=== PATIENT | male | born 1945 | race Caucasian/White ===

== ENCOUNTER 2022-09-16 06:11 | Inpatient (IN) ==
--- NOTE | 2022-08-25 10:29 | PAT Medication Instructions ---
Medication Instructions Date of Service August 25, 2022 Home Medications atorvastatin 20 mg tablet 20 mg PO HS fiber 1 tab PO QAM meloxicam 15 mg tablet 15 mg PO QAM pregabalin 150 mg capsule 150 mg PO HS pregabalin 75 mg capsule 75 mg PO QAM ASK your surgeon for instructions meloxicam 15 mg tablet 15 mg PO QAM DO NOT take the morning of surgery fiber 1 tab PO QAM Take morning of surgery With a small sip of water, OTHERWISE NOTHING TO EAT OR DRINK AFTER MIDNIGHT: pregabalin 75 mg capsule 75 mg PO QAM Take evening before surgery atorvastatin 20 mg tablet 20 mg PO HS pregabalin 150 mg capsule 150 mg PO HS Other Notes If you have any questions please call us at [phone] or [phone] or [phone] or [phone]
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
[~2022-09-16 06:11] MED LIST: ACETAMINOPHEN 500 MG TAB PO SCH; CeleBREX 200 MG CAP PO SCH; GABAPENTIN 300 MG CAP PO SCH; LACTATED RINGER'S 1,000 ML IV SCH; ceFAZolin 2000MG 2,000 MG/15 ML SYR IV SCH
[2022-09-16] MEDS ORDERED: ROCURONIUM BROMIDE 10 MG/ML 5 ML VIAL IV ONE ×2 (07:01→09:55)
[2022-09-16] MEDS ORDERED: ONDANSETRON INJ 2 MG/ML 2 ML VIAL ONE (07:01)
[2022-09-16] MEDS ORDERED: DEXAMETHASONE SOD INJ 4 MG/ML VIAL ONE (07:01)
[2022-09-16] MEDS ORDERED: LIDOCAINE 2% 2 ML VIAL/AMP(20MG/ML) INFIL ONE (07:01)
[2022-09-16] MEDS ORDERED: PROPOFOL IV EMULSION 10 MG/ML 20 ML VIAL IV ONE (07:01)
[2022-09-16] MEDS ORDERED: fentaNYL citrate PF 100 MCG/2 ML VIAL ONE ×2 (07:02)
[2022-09-16] MEDS ORDERED: MIDAZOLAM HCL 1 MG/ML 2ML VIAL ONE (07:02)
[2022-09-16] MEDS ORDERED: SUGAMMADEX SODIUM 200 MG/2 ML VIAL IV ONE (07:03)
[2022-09-16] MEDS ORDERED: ePHEDrine sulfate 50 MG/ML AMP IV PRN (07:04)
[2022-09-16] MEDS ORDERED: ONDANSETRON INJ 2 MG/ML 2 ML VIAL IV PRN ×2 (07:04→12:39)
[2022-09-16] MEDS ORDERED: fentaNYL citrate PF 100 MCG/2 ML VIAL IV PRN (07:04)
[2022-09-16] MEDS ORDERED: ATROPINE SULFATE 0.1 MG/ML 10ML SYR IV PRN (07:04)
[2022-09-16] MEDS ORDERED: BUPIVACAINE/EPINEPHRINE 0.25% 1:200,000 30 ML VIAL ONE (07:06)
[2022-09-16] MEDS ORDERED: ceFAZolin 330 MG/ML 1 GM VIAL ONE (07:06)
--- NOTE | 2022-09-16 07:32 | History & Physical Bridge Note ---
Date of Service September 16, 2022 History & Physical Bridge Note I have examined the patient, reviewed the History & Physical and in the interval since the performance of the History & Physical I have noted the following changes of clinical significance: no changes noted
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
[2022-09-16] MEDS ORDERED: FLOSEAL HEMOSTATIC MATRIX 10ML TOP ONE (08:58)
--- NOTE | 2022-09-16 11:04 | Operative Report ---
Post Operative Report Pre & Post Diagnosis Operation Date: 09/16/22 07:45 Pre-Op Diagnosis: Neurogenic claudication due to lumbar spinal stenosis Post-Op Diagnosis: Neurogenic claudication due to lumbar spinal stenosis I identified the patient and participated in the time-out.: Yes Procedure Operation Date: 09/16/22 07:45 Actual Procedures 1. Revision lumbar decompression with bilateral medial facetectomies and foraminotomies L2-L3, L3-L4, L4-L5 and L5-S1. #2 posterior spinal fusion L2-S1. #3 placement posterior segmental instrumentation L2-S1. #4 interbody fusion L3-L4, L4-L5 and L5-S1. #5 placement of Spira 12 x 26 mm cage at L3-L4, 10 x 26 mm cage at L4-L5. And 14 x 26 mm at L4-5 S1. #6 placement locally harvested morselized autograft in the posterior gutters. #7 placement of I factor commended the test and interbody space and posterior gutters. Surgeon Jf Gonzalez, DO Seam Stay Stitcher Preston Hammer Estimated Blood Loss 550 Findings Consistent with Post-Op Diagnosis Specimens none Indications This is 77-year-old male who presents above-mentioned diagnosis and failing since course of nonoperative care is here for surgical intervention. Description of Procedure Patient was met with identified informed consent obtained. Patient was then taken to the operative suite underwent a patient placed in a prone position on the [place] table top Bright frame. All bony prominences well-padded eyes inspected to ensure no external pressure placed upon the. This point lumbar spine was prepped and draped in a sterile fashion. Sharp dissection with assistance of Bovie cautery to form down to and exposing the remaining lamina transverse processes of L2 L3-L4-L5 and the sacral ala bilaterally. From a caudal cephalad fashion revision complete laminectomy L5 L4 L3 and L2 was performed including bilateral medial facetectomies and foraminotomies addressing severe lateral recess and foraminal stenosis. Pedicle screws were then placed L2 L3-L4-L5 and S1 levels bilaterally with assistance of fluoroscopy the properly sized clemencia placed. By way of a trans foraminal approach on the left pleat discectomy of L5-S1 was performed endplates curetted to subcortically bone and a 14 x 26 mm Spira cage with I factor tapped in position. Then proceeded to L4-L5 again by way of transforaminal approach on the left pleat discectomy performed endplates guided to subcortically bone and a 10 x 26 mm Spira cage with I factor tapped in position. Lastly L3-L4 was approached by way of a transforaminal approach and left knee discectomy performed endplates curetted to subcortical bleeding bone and the 12 x 26 mm Spira cage with I factor tapped in position. The rods were then locked in final position bilaterally. The transverse processes of L2 L3-L4-L5 and sacral ala burred to subcortically bone. I factor combined with the test and locally harvested morselized autograft was placed in the posterior gutters. 15 round GIL drain inserted. The incision was then closed with 1 Vicryl to fascia 2-0 Vicryl subcutaneously and 4 Monocryl for final skin closure. Steri-Strip sterile dressing placed. Patient awakened taken to PACU in stable condition. Please note spinal cord monitoring was utilized at the procedure no changes noted. Lastly Preston Hammer was present at the entire surgery and while the patient positioning complex portions of the surgery and final skin closure. I attest to the content of the Intraoperative Record and any orders documented therein. Any exceptions are noted below.
--- NOTE | 2022-09-16 11:08 | Fluoroscopy Report ---
FL lumbar spine 2-3V CLINICAL HISTORY: L2-S1 DFI TECHNIQUE: 3 views were obtained with the C-arm in the OR with the above procedure. Total fluoroscopy time was 37.1 seconds. Radiation dose was 18.06 mGy. Comparison: None available at the time of this dictation. FINDINGS/IMPRESSION: Intraoperative images were obtained of L2-S1 decompression and fusion. Please correlate with intraoperative fluoroscopy and operative report. ACT 112: Negative or not required by law. Electronically signed by: Bruno Silverio M.D. 09/16/2022 11:07 AM
[2022-09-16] MEDS ORDERED: PROMETHAZINE HCL 12.5 MG in SODIUM CHLORIDE 0.9% 50 ML IV PRN (12:39)
[2022-09-16] MEDS ORDERED: HYDROmorphone INJ 1 MG/ML SYRINGE IV PRN (12:39)
[2022-09-16] MEDS ORDERED: ALUMINUM/MAGNESIUM SUSP 30 ML UDC PO PRN (12:39)
[2022-09-16] MEDS ORDERED: FAMOTIDINE 20 MG TAB PO PRN (12:39)
[2022-09-16] MEDS ORDERED: ONDANSETRON 4 MG OD TAB PO PRN (12:39)
[2022-09-16] MEDS ORDERED: LORazepam 0.5 MG TAB PO PRN (12:39)
[2022-09-16] MEDS ORDERED: DO NOT ADMINISTER PNEUMOCOCCAL VACCINE PRN (12:39)
[2022-09-16] MEDS ORDERED: ACETAMINOPHEN 500 MG TAB PO PRN (12:39)
[2022-09-16] MEDS ORDERED: bisacodyL 10 MG SUPP PR PRN (12:39)
[2022-09-16] MEDS ORDERED: diphenhydrAMINE Capsule 25 MG CAP PO PRN (12:39)
[2022-09-16] MEDS ORDERED: LORazepam 2 MG/1 ML VIAL IV PRN (12:39)
[2022-09-16] MEDS ORDERED: traMADol HCL 50 MG TABLET PO PRN (12:39)
[2022-09-16] MEDS ORDERED: DO NOT ADMINISTER FLU VACCINE PRN (12:39)
[2022-09-16] MEDS ORDERED: ACETAMINOPHEN 1,000 MG/100 ML VIAL IV PRN (12:39)
[2022-09-16] MEDS ORDERED: HYDROmorphone INJ 0.5 MG/0.5 ML SYR IV PRN (12:39)
[2022-09-16] MEDS ORDERED: METOCLOPRAMIDE HCL INJ 5 MG/ML 2 ML VIAL IV PRN (12:39)
[2022-09-16] MEDS ORDERED: SOD PHOSPHATE/SOD BIPHOSPHATE ENEMA 132 ML BTL PR PRN (12:39)
[2022-09-16] MEDS ORDERED: MAGNESIUM HYDROXIDE SUSP 30 ML UDC PO PRN (12:39)
[2022-09-16] MEDS ORDERED: NALOXONE HCL 0.4 MG/1 ML VIAL/CARP IV PRN (12:39)
[2022-09-16] MEDS ORDERED: hydrOXYzine HCl 25 MG TAB PO PRN (12:39)
[2022-09-16] MEDS: LACTATED RINGER'S 1,000 ML IV SCH ×2 (12:56→21:52)
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
--- NOTE | 2022-09-16 13:47 | Anesthesiology Progress Note ---
Date of Service September 16, 2022 Anesthesia Post Procedure Vital Signs Vital Signs: Temp Pulse Pulse Resp BP Pulse Ox O2 Del Method 09/16/22 13:35 51 L 18 95/54 L 98 Room Air 09/16/22 13:02 97.2 F L 48 L 24 101/55 L 92 Room Air 09/16/22 12:35 97.7 F 48 L 18 109/66 93 Room Air 09/16/22 12:20 97.9 F 54 L 20 104/54 L 94 Room Air 09/16/22 12:10 54 L 18 101/59 L 93 Room Air 09/16/22 12:00 57 L 12 115/55 L 97 Room Air 09/16/22 11:50 54 L 12 115/62 100 Oxymask 09/16/22 11:40 54 L 12 115/59 L 100 Oxymask 09/16/22 11:33 97.3 F L 63 18 116/70 98 Oxymask 09/16/22 06:37 97.9 F 18 147/65 H O2 Flow Rate 09/16/22 13:35 09/16/22 13:02 09/16/22 12:35 09/16/22 12:20 09/16/22 12:10 09/16/22 12:00 09/16/22 11:50 11 09/16/22 11:40 11 09/16/22 11:33 11 09/16/22 06:37 Pain Intensity Back: Pain Intensity: 8 Transfer of Care Handoff Completed per policy Notes Mental Status: alert / awake / arousable and participated in evaluation Patient Amnestic to Procedure: Yes Nausea / Vomiting: adequately controlled Pain: adequately controlled Airway Patency, RR, SpO2: stable & adequate BP & HR: stable & adequate Hydration State: stable & adequate Anesthetic Complications: no major complications apparent and Pt Satisfied with anesthetic care
[2022-09-16] MEDS: ceFAZolin 2000MG 2,000 MG/15 ML SYR IV SCH (18:17)
[2022-09-16] MEDS: DOCUSATE SODIUM/SENNA 50/8.6MG TAB PO SCH (20:17)
[2022-09-16] MEDS: PREGABALIN 150 MG CAP PO SCH (20:17)
[2022-09-16] MEDS: ATORVASTATIN 20 MG TAB PO SCH (20:17)
[2022-09-17] MEDS: ceFAZolin 2000MG 2,000 MG/15 ML SYR IV SCH (00:27)
[2022-09-17] MEDS: oxyCODONE HCL IR 5 MG TAB (IMMEDIATE RELEASE) PO PRN ×2 (00:27→22:12)
[2022-09-17] MEDS: POLYETHYLENE (MIRALAX) 17 GM PACK PO SCH ×4 (05:47→23:25)
[2022-09-17] MEDS ORDERED: LACTATED RINGER'S 1,000 ML IV ONE (06:05)
[2022-09-17 07:55] LABS: Basophils # (auto) 0.01 K/uL (0-0.2); Basophils % (auto) 0.1 %; Hemoglobin 9.1 g/dl (14.0-18.0); Immature Granulocytes # (auto) 0.05 K/uL (0.01-0.20); Immature Granulocytes % (auto) 0.4 %; Lymphocytes % (auto) 7.1 %; Mean Corpuscular Hemoglobin 30.6 pg (25.0-34.0); Mean Corpuscular Hgb Conc 33.7 g/dL (32.0-36.0); Mean Corpuscular Volume 90.9 fL (80.0-100.0); Mean Platelet Volume 11.2 fL (9.4-12.4); Monocytes # (auto) 0.99 K/uL (0.11-0.59); Monocytes % (auto) 8.8 %; Neutrophils # (auto) 9.39 K/uL (1.40-6.50); Neutrophils % (auto) 83.6 %; Platelet Count 123 K/uL (130-400); RDW Coefficient of Variation 12.7 % (11.5-14.5); RDW Standard Deviation 41.9 fL (36.4-46.3); Red Blood Count 2.97 M/uL (4.70-6.10); White Blood Count 11.24 K/ul (4.8-10.8)
[2022-09-17] MEDS: dexAMETHasone 6 MG in SYRINGE 0 ML IV SCH (08:08)
[2022-09-17] MEDS: PREGABALIN 75 MG CAP PO SCH (08:08)
[2022-09-17 08:09] LABS: BUN Creatinine Ratio 21.1 (10-20); Creatinine Clr Calc Pharmacy 51.4 ml/min; Est GFR (African American) 74.4 ml/min; Est GFR (Non-African American) 64.2 ml/min; Magnesium 1.8 mg/dl (1.7-2.4); Potassium 4.2 mmol/L (3.5-5.1)
--- NOTE | 2022-09-17 09:02 | Hospitalist Progress Note ---
Date of Service September 17, 2022 Assessment & Plan (1) Neurogenic claudication due to lumbar spinal stenosis: Plan Neurogenic claudication due to lumbar spinal stenosis Status post L2-S1 lumbar decompression fusion by Dr. Gonzalez, POD #1 Tolerated procedure well Pain/wound management per orthopedic Activity and therapy as prescribed by Ortho Acute blood loss anemia, also likely component of dilution Preop hgb 12.9 -> 9.1 Monitor hemoglobin Sinus bradycardia Chronic, asymptomatic Seen and evaluated by cardiology in [place], [place] and underwent echocardiogram and stress test There is possible concern about underlying sick sinus syndrome however recommendation is to continue to monitor patient at this point time outpt cardiology records reviewed Hyperlipidemia Continue statin DVT prophylaxis: Per primary Full code Dispo: Per primary PCP: Jef Mills PA-C; pt resides in [place] for 1/2 the year and has medical care there as well Thank you for this consultation. We will follow the patient with you during their hospital stay. You can reach a member of the [facility] Hospitalist Team 03/11 via hospitalist role on tiger text. Admission and Anticipated Discharge Date Admission Date: September 16, 2022 Subjective Pt seen in follow up of med consult - pt s/p lumbar spine surgery Currently laying in bed, in no acute distress Says he was sitting in a chair, however has not been ambulating yet Still has Velazco catheter as well No fever chills chest pain shortness of breath no abdominal pain, passing flatus Only reports some lower back pain at the surgical site Review of Systems Review of Systems: All systems reviewed & are unremarkable except as noted in Subjective Physical Exam Physical Exam: Constitutional: WD/WN, NAD, lying in bed Head: Normocephalic, Atraumatic Eyes: PERRL, conjunctivae normal, anicteric sclerae ENMT: external ear and nose normal, oropharynx normal Neck:supple Respiratory: normal respiratory effort, lungs clear to auscultation, no wheeze, rales, rhonchi. Normal insp/exp effort Cardiovascular: RRR, no murmur, no edema Vessels: no JVD or carotid bruit Chest: normal inspection of chest Abdomen: normal bowel sounds, soft, nontender, Musculoskeletal: back -bernardo drain with serosang drainage Skin: no rashes, warm and dry Neurologic: PERRL, no face palsy, no dysarthria, moves all extremities Psychiatric: A+Ox3, euthymic affect : velazco cath draining yellow urine Results & Data Results & Data Vital Signs (Past 12 Hours) Vital Signs Temp Pulse Resp BP Pulse Ox O2 Del Method 09/17/22 07:29 36.5 C 49 L 18 100/56 L 96 Room Air 09/17/22 05:53 53 L 89/39 L 09/17/22 05:53 54 L 89/58 L 09/17/22 05:52 58 L 16 99/58 L 95 Room Air 09/17/22 02:48 36.4 C L 50 L 16 94/46 L 96 Room Air 09/16/22 22:05 36.6 C 69 16 94/50 L 95 Room Air Laboratory Results 09/17/22 09/17/22 09/17/22 Range/Units 07:32 07:29 07:29 WBC (4.8-10.8) K/ul RBC (4.70-6.10) M/uL Hgb (14.0-18.0) g/dl Hct (42.0-52.0) % MCV (80.0-100.0) fL MCH (25.0-34.0) pg MCHC (32.0-36.0) g/dL RDW Std Deviation (36.4-46.3) fL RDW Coeff of Shanti (11.5-14.5) % Plt Count (130-400) K/uL MPV (9.4-12.4) fL Immature Gran % (Auto) % Neut % (Auto) % Lymph % (Auto) % [place] % (Auto) % Eos % (Auto) % Baso % (Auto) % Neut # (Auto) (1.40-6.50) K/uL Lymph # (Auto) (1.2-3.4) K/uL [place] # (Auto) (0.11-0.59) K/uL Eos # (Auto) (0-0.50) K/uL Baso # (Auto) (0-0.2) K/uL Immature Gran # (Auto) (0.01-0.20) K/uL Sodium 138 (136-145) mmol/L Potassium 4.2 (3.5-5.1) mmol/L Chloride 105 (98-107) mmol/L Carbon Dioxide 29 (21-32) mmol/L Anion Gap 4 (3-11) BUN 23 (6-23) mg/dl Creatinine 1.09 (0.6-1.4) mg/dl Est Cr Clr Drug Dosing 51.4 ml/min Est GFR ( Amer) 74.4 ml/min Est GFR (Non-Af Amer) 64.2 ml/min BUN/Creatinine Ratio 21.1 H (10-20) Glucose 141 H (70-99(Fasting)) mg/dl Lactate 1.8 (0.4-2.0) mmol/L Calcium 8.0 L (8.6-10.3) mg/dl Magnesium 1.8 (1.7-2.4) mg/dl TSH 1.505 (0.300-4.500) uIu/ml 09/17/22 Range/Units 07:29 WBC 11.24 H (4.8-10.8) K/ul RBC 2.97 L (4.70-6.10) M/uL Hgb 9.1 L (14.0-18.0) g/dl Hct 27.0 L (42.0-52.0) % MCV 90.9 (80.0-100.0) fL MCH 30.6 (25.0-34.0) pg MCHC 33.7 (32.0-36.0) g/dL RDW Std Deviation 41.9 (36.4-46.3) fL RDW Coeff of Shanti 12.7 (11.5-14.5) % Plt Count 123 L (130-400) K/uL MPV 11.2 (9.4-12.4) fL Immature Gran % (Auto) 0.4 % Neut % (Auto) 83.6 % Lymph % (Auto) 7.1 % [place] % (Auto) 8.8 % Eos % (Auto) 0.0 % Baso % (Auto) 0.1 % Neut # (Auto) 9.39 H (1.40-6.50) K/uL Lymph # (Auto) 0.80 L (1.2-3.4) K/uL [place] # (Auto) 0.99 H (0.11-0.59) K/uL Eos # (Auto) 0.00 (0-0.50) K/uL Baso # (Auto) 0.01 (0-0.2) K/uL Immature Gran # (Auto) 0.05 (0.01-0.20) K/uL Sodium (136-145) mmol/L Potassium (3.5-5.1) mmol/L Chloride (98-107) mmol/L Carbon Dioxide (21-32) mmol/L Anion Gap (3-11) BUN (6-23) mg/dl Creatinine (0.6-1.4) mg/dl Est Cr Clr Drug Dosing ml/min Est GFR ( Amer) ml/min Est GFR (Non-Af Amer) ml/min BUN/Creatinine Ratio (10-20) Glucose (70-99(Fasting)) mg/dl Lactate (0.4-2.0) mmol/L Calcium (8.6-10.3) mg/dl Magnesium (1.7-2.4) mg/dl TSH (0.300-4.500) uIu/ml Medications Administered Current Inpatient Medications Acetaminophen (Acetaminophen 500 Mg Tab) 1,000 mg PO Q8H PRN PRN Reason: MILD Pain Scale 1,2,3 & Pre PT Stop: 10/16/22 12:38 Last Admin: 09/16/22 20:19 Dose: 1,000 mg Al Hydrox/Mg Hydrox/Simethicone (Aluminum/Magnesium Susp 30 Ml Udc) 30 ml PO Q6H PRN PRN Reason: Dyspepsia Stop: 10/16/22 12:38 Atorvastatin Calcium (Atorvastatin 20 Mg Tab) 20 mg PO HS JAYLA Stop: 10/16/22 20:59 Last Admin: 09/16/22 20:17 Dose: 20 mg Bisacodyl (Bisacodyl 10 Mg Supp) 10 mg IA DAILY PRN PRN Reason: Constipation Stop: 10/16/22 12:38 Diphenhydramine HCl (Diphenhydramine Capsule 25 Mg Cap) 25 mg PO Q6H PRN PRN Reason: Allergic Rhinitis/Insomnia Stop: 10/16/22 12:38 Famotidine (Famotidine 20 Mg Tab) 20 mg PO Q12H PRN PRN Reason: Dyspepsia Stop: 10/16/22 12:38 Hydromorphone HCl (Hydromorphone Inj 0.5 Mg/0.5 Ml Syr) 0.5 mg IV Q3H PRN PRN Reason: MODERATE Pain (Scale 4,5,6) & Pre PT Stop: 09/30/22 12:38 Last Admin: 09/16/22 14:28 Dose: 0.5 mg Hydromorphone HCl (Hydromorphone Inj 1 Mg/Ml Syringe) 1 mg IV Q3H PRN PRN Reason: SEVERE Pain (Scale 7,8,9,10) Stop: 09/30/22 12:38 Hydroxyzine HCl (Hydroxyzine Hcl 25 Mg Tab) 25 mg PO Q8H PRN PRN Reason: Anxiety Stop: 10/16/22 12:38 Promethazine HCl 12.5 mg/ (Sodium Chloride) 50.5 mls @ 202 mls/hr IV Q6H PRN PRN Reason: Nausea &/or Vomiting Stop: 10/16/22 12:38 Acetaminophen (Ofirmev) 1,000 mg in 100 mls @ 400 mls/hr IV Q8H PRN PRN Reason: Pain Rating 1-3 & Pre PT Stop: 09/17/22 12:39 Last Infusion: 09/16/22 13:31 Dose: Infused Dexamethasone 6 mg/ Syringe 1.5 mls @ 1 mls/min IV DAILY JAYLA Stop: 09/19/22 09:02 Last Admin: 09/17/22 08:08 Dose: 1 mls/min Lactated Ringer's (Lr) 1,000 mls @ 200 mls/hr IV .Q5H ONE Stop: 09/17/22 11:03 Last Admin: 09/17/22 06:23 Dose: 200 mls/hr Influenza Virus Vaccine Quadrival (Do Not Administer Flu Vaccine) 1 each N/A PRN PRN PRN Reason: Notification Stop: 10/16/22 12:38 Lorazepam (Lorazepam 0.5 Mg Tab) 0.5 mg PO Q8H PRN PRN Reason: Sedation/Anxiety Stop: 10/16/22 12:38 Lorazepam (Lorazepam 2 Mg/1 Ml Vial) 0.5 mg IV Q8H PRN PRN Reason: Sedation/Anxiety Stop: 10/16/22 12:38 Magnesium Hydroxide (Magnesium Hydroxide Susp 30 Ml Udc) 30 ml PO Q24H PRN PRN Reason: Constipation Stop: 10/16/22 12:38 Metoclopramide HCl (Metoclopramide Hcl Inj 5 Mg/Ml 2 Ml Vial) 10 mg IV Q6H PRN PRN Reason: Nausea &/or Vomiting Stop: 10/16/22 12:38 Naloxone HCl (Naloxone Hcl 0.4 Mg/1 Ml Vial/Carp) 0.1 mg IV Q5M PRN PRN Reason: Oversedation/Resp depression Stop: 10/16/22 12:38 Ondansetron HCl (Ondansetron Inj 2 Mg/Ml 2 Ml Vial) 4 mg IV Q6H PRN PRN Reason: Nausea &/or Vomiting Stop: 10/16/22 12:38 Ondansetron HCl (Ondansetron 4 Mg Od Tab) 4 mg PO Q6H PRN PRN Reason: Nausea Stop: 10/16/22 12:38 Oxycodone HCl (Oxycodone Hcl Ir 5 Mg Tab (Immediate Release)) 5 - 10 mg PO Q4H PRN PRN Reason: Pain & Pre PT Stop: 09/30/22 12:38 Last Admin: 09/17/22 00:27 Dose: 10 mg Pneumococcal Polyvalent Vaccine (Do Not Administer Pneumococcal Vaccine) 1 each N/A PRN PRN PRN Reason: Notification Stop: 10/16/22 12:38 Polyethylene Glycol (Polyethylene (Miralax) 17 Gm Pack) 17 gm PO Q6 JAYLA Stop: 10/17/22 05:59 Last Admin: 09/17/22 05:47 Dose: 17 gm Pregabalin (Pregabalin 75 Mg Cap) 75 mg PO QAM [facility] Stop: 10/17/22 08:59 Last Admin: 09/17/22 08:08 Dose: 75 mg Pregabalin (Pregabalin 150 Mg Cap) 150 mg PO HS [facility] Stop: 10/16/22 20:59 Last Admin: 09/16/22 20:17 Dose: 150 mg Senna/Docusate Sodium (Docusate Sodium/Senna 50/8.6mg Tab) 2 tab PO HS [facility] Stop: 10/16/22 20:59 Last Admin: 09/16/22 20:17 Dose: 2 tab Sodium Biphosphate/Sodium Phosphate (Sod Phosphate/Sod Biphosphate Enema 132 Ml Btl) 132 ml IA ONE PRN PRN Reason: Constipation Stop: 10/16/22 12:38 Tramadol HCl (Tramadol Hcl 50 Mg Tablet) 50 - 100 mg PO Q4H PRN PRN Reason: Moderate-Severe pain & Pre PT Stop: 10/16/22 12:38
--- NOTE | 2022-09-17 10:57 | Orthopedic Progress Note ---
Date of Service September 17, 2022 Assessment & Plan (1) Neurogenic claudication due to lumbar spinal stenosis: Plan: This, can continue physical therapy monitor GIL operatively discharge home next few days. Admission and Anticipated Discharge Date Admission Date: September 16, 2022 Subjective Patient's back pain is controlled leg symptoms improved Physical Exam Physical Exam: Patient is currently in bed. Is finished up physical therapy discussed active t stef. Results & Data Vital Signs (Past 12 Hours) Vital Signs Temp Pulse Resp BP Pulse Ox O2 Del Method 09/17/22 07:29 36.5 C 49 L 18 100/56 L 96 Room Air 09/17/22 05:53 53 L 89/39 L 09/17/22 05:53 54 L 89/58 L 09/17/22 05:52 58 L 16 99/58 L 95 Room Air 09/17/22 02:48 36.4 C L 50 L 16 94/46 L 96 Room Air
[2022-09-17] MEDS: DOCUSATE SODIUM/SENNA 50/8.6MG TAB PO SCH (20:31)
[2022-09-17] MEDS: ATORVASTATIN 20 MG TAB PO SCH (20:32)
[2022-09-17] MEDS: PREGABALIN 150 MG CAP PO SCH (20:35)
[2022-09-18] MEDS: POLYETHYLENE (MIRALAX) 17 GM PACK PO SCH ×3 (06:04→18:00)
[2022-09-18 07:19] LABS: Hematocrit (blood only) 27.1 % (42.0-52.0); Hemoglobin 9.2 g/dl (14.0-18.0); Mean Corpuscular Hemoglobin 30.6 pg (25.0-34.0); Mean Corpuscular Hgb Conc 33.9 g/dL (32.0-36.0); Mean Platelet Volume 11.5 fL (9.4-12.4); Platelet Count 125 K/uL (130-400); RDW Coefficient of Variation 12.9 % (11.5-14.5); RDW Standard Deviation 41.6 fL (36.4-46.3); Red Blood Count 3.01 M/uL (4.70-6.10); White Blood Count 11.91 K/ul (4.8-10.8)
[2022-09-18 08:03] LABS: Calcium 8.4 mg/dl (8.6-10.3); Potassium 3.8 mmol/L (3.5-5.1)
[2022-09-18 08:08] LABS: BUN Creatinine Ratio 18.2 (10-20); Creatinine Clr Calc Pharmacy 56.6 ml/min; Est GFR (African American) 83.6 ml/min; Est GFR (Non-African American) 72.1 ml/min
--- NOTE | 2022-09-18 08:16 | Orthopedic Progress Note ---
Date of Service September 18, 2022 Assessment & Plan (1) Neurogenic claudication due to lumbar spinal stenosis: Plan: This time we will continue physical therapy monitor his GIL operatively discharge home tomorrow. Admission and Anticipated Discharge Date Admission Date: September 16, 2022 Subjective Back pain controlled leg pain markedly improved Physical Exam Physical Exam: Patient is in the chair at the bedside. She is constricted testing. Peers comfortable. Results & Data Vital Signs (Past 12 Hours) Vital Signs Temp Pulse Resp BP Pulse Ox O2 Del Method 09/18/22 07:28 36.7 C 50 L 18 133/65 96 Room Air
[2022-09-18] MEDS: dexAMETHasone 6 MG in SYRINGE 0 ML IV SCH (08:44)
[2022-09-18] MEDS: PREGABALIN 75 MG CAP PO SCH (08:48)
--- NOTE | 2022-09-18 11:29 | Hospitalist Progress Note ---
Date of Service September 18, 2022 Assessment & Plan (1) Neurogenic claudication due to lumbar spinal stenosis: Plan Neurogenic claudication due to lumbar spinal stenosis Status post L2-S1 lumbar decompression fusion by Dr. Gonzalez, POD #2 Tolerated procedure well Pain/wound management per orthopedic Activity and therapy as prescribed by Ortho Acute blood loss anemia, also likely component of dilution Preop hgb 12.9 -> 9.1 currently stable from yesterday Monitor hemoglobin Sinus bradycardia Chronic, asymptomatic Seen and evaluated by cardiology in [place], [place] and underwent echocardiogram and stress test There is possible concern about underlying sick sinus syndrome however recommendation is to continue to monitor patient at this point time outpt cardiology records reviewed Hyperlipidemia Continue statin DVT prophylaxis: Per primary Full code Dispo: Per primary PCP: Jef Mills PA-C; pt resides in [place] for 1/2 the year and has medical care there as well Thank you for this consultation. We will follow the patient with you during their hospital stay. You can reach a member of the [facility] Hospitalist Team 03/11 via hospitalist role on tiger text. Admission and Anticipated Discharge Date Admission Date: September 16, 2022 Subjective Pt seen in follow up of med consult - pt s/p lumbar spine surgery Currently ambulating in his room, in no acute distress Reyes removed, he is voiding, but no BM yet No fever chills chest pain shortness of breath, no abdominal pain Only reports some lower back pain at the surgical site Review of Systems Review of Systems: All systems reviewed & are unremarkable except as noted in Subjective Physical Exam Physical Exam: Constitutional: WD/WN, NAD Head: Normocephalic, Atraumatic Eyes: PERRL, conjunctivae normal, anicteric sclerae ENMT: external ear and nose normal, oropharynx normal Neck:supple Respiratory: normal respiratory effort, lungs clear to auscultation, no wheeze, rales, rhonchi. Normal insp/exp effort Cardiovascular: RRR, no murmur, no edema Vessels: no JVD or carotid bruit Chest: normal inspection of chest Abdomen: normal bowel sounds, soft, nontender, Musculoskeletal: back -bernardo drain with serosang. drainage Skin: no rashes, warm and dry Neurologic: PERRL, no face palsy, no dysarthria, moves all extremities Psychiatric: A+Ox3, euthymic affect Results & Data Results & Data Vital Signs (Past 12 Hours) Vital Signs Temp Pulse Resp BP Pulse Ox O2 Del Method 09/18/22 07:28 36.7 C 50 L 18 133/65 96 Room Air Laboratory Results 09/18/22 09/18/22 Range/Units 06:34 06:34 WBC 11.91 H (4.8-10.8) K/ul RBC 3.01 L (4.70-6.10) M/uL Hgb 9.2 L (14.0-18.0) g/dl Hct 27.1 L (42.0-52.0) % MCV 90.0 (80.0-100.0) fL MCH 30.6 (25.0-34.0) pg MCHC 33.9 (32.0-36.0) g/dL RDW Std Deviation 41.6 (36.4-46.3) fL RDW Coeff of Shanti 12.9 (11.5-14.5) % Plt Count 125 L (130-400) K/uL MPV 11.5 (9.4-12.4) fL Sodium 139 (136-145) mmol/L Potassium 3.8 (3.5-5.1) mmol/L Chloride 106 (98-107) mmol/L Carbon Dioxide 29 (21-32) mmol/L Anion Gap 4 (3-11) BUN 18 (6-23) mg/dl Creatinine 0.99 (0.6-1.4) mg/dl Est Cr Clr Drug Dosing 56.6 ml/min Est GFR ( Amer) 83.6 ml/min Est GFR (Non-Af Amer) 72.1 ml/min BUN/Creatinine Ratio 18.2 (10-20) Glucose 142 H (70-99(Fasting)) mg/dl Calcium 8.4 L (8.6-10.3) mg/dl Medications Administered Current Inpatient Medications Acetaminophen (Acetaminophen 500 Mg Tab) 1,000 mg PO Q8H PRN PRN Reason: MILD Pain Scale 1,2,3 & Pre PT Stop: 10/16/22 12:38 Last Admin: 09/16/22 20:19 Dose: 1,000 mg Al Hydrox/Mg Hydrox/Simethicone (Aluminum/Magnesium Susp 30 Ml Udc) 30 ml PO Q6H PRN PRN Reason: Dyspepsia Stop: 10/16/22 12:38 Atorvastatin Calcium (Atorvastatin 20 Mg Tab) 20 mg PO HS JAYLA Stop: 10/16/22 20:59 Last Admin: 09/17/22 20:32 Dose: 20 mg Bisacodyl (Bisacodyl 10 Mg Supp) 10 mg [place] DAILY PRN PRN Reason: Constipation Stop: 10/16/22 12:38 Diphenhydramine HCl (Diphenhydramine Capsule 25 Mg Cap) 25 mg PO Q6H PRN PRN Reason: Allergic Rhinitis/Insomnia Stop: 10/16/22 12:38 Famotidine (Famotidine 20 Mg Tab) 20 mg PO Q12H PRN PRN Reason: Dyspepsia Stop: 10/16/22 12:38 Hydromorphone HCl (Hydromorphone Inj 0.5 Mg/0.5 Ml Syr) 0.5 mg IV Q3H PRN PRN Reason: MODERATE Pain (Scale 4,5,6) & Pre PT Stop: 09/30/22 12:38 Last Admin: 09/16/22 14:28 Dose: 0.5 mg Hydromorphone HCl (Hydromorphone Inj 1 Mg/Ml Syringe) 1 mg IV Q3H PRN PRN Reason: SEVERE Pain (Scale 7,8,9,10) Stop: 09/30/22 12:38 Hydroxyzine HCl (Hydroxyzine Hcl 25 Mg Tab) 25 mg PO Q8H PRN PRN Reason: Anxiety Stop: 10/16/22 12:38 Promethazine HCl 12.5 mg/ (Sodium Chloride) 50.5 mls @ 202 mls/hr IV Q6H PRN PRN Reason: Nausea &/or Vomiting Stop: 10/16/22 12:38 Dexamethasone 6 mg/ Syringe 1.5 mls @ 1 mls/min IV DAILY JAYLA Stop: 09/19/22 09:02 Last Admin: 09/18/22 08:44 Dose: 1 mls/min Influenza Virus Vaccine Quadrival (Do Not Administer Flu Vaccine) 1 each N/A PRN PRN PRN Reason: Notification Stop: 10/16/22 12:38 Lorazepam (Lorazepam 0.5 Mg Tab) 0.5 mg PO Q8H PRN PRN Reason: Sedation/Anxiety Stop: 10/16/22 12:38 Lorazepam (Lorazepam 2 Mg/1 Ml Vial) 0.5 mg IV Q8H PRN PRN Reason: Sedation/Anxiety Stop: 10/16/22 12:38 Magnesium Hydroxide (Magnesium Hydroxide Susp 30 Ml Udc) 30 ml PO Q24H PRN PRN Reason: Constipation Stop: 10/16/22 12:38 Metoclopramide HCl (Metoclopramide Hcl Inj 5 Mg/Ml 2 Ml Vial) 10 mg IV Q6H PRN PRN Reason: Nausea &/or Vomiting Stop: 10/16/22 12:38 Naloxone HCl (Naloxone Hcl 0.4 Mg/1 Ml Vial/Carp) 0.1 mg IV Q5M PRN PRN Reason: Oversedation/Resp depression Stop: 10/16/22 12:38 Ondansetron HCl (Ondansetron Inj 2 Mg/Ml 2 Ml Vial) 4 mg IV Q6H PRN PRN Reason: Nausea &/or Vomiting Stop: 10/16/22 12:38 Ondansetron HCl (Ondansetron 4 Mg Od Tab) 4 mg PO Q6H PRN PRN Reason: Nausea Stop: 10/16/22 12:38 Oxycodone HCl (Oxycodone Hcl Ir 5 Mg Tab (Immediate Release)) 5 - 10 mg PO Q4H PRN PRN Reason: Pain & Pre PT Stop: 09/30/22 12:38 Last Admin: 09/17/22 22:12 Dose: 10 mg Pneumococcal Polyvalent Vaccine (Do Not Administer Pneumococcal Vaccine) 1 each N/A PRN PRN PRN Reason: Notification Stop: 10/16/22 12:38 Polyethylene Glycol (Polyethylene (Miralax) 17 Gm Pack) 17 gm PO Q6 JAYLA Stop: 10/17/22 05:59 Last Admin: 09/18/22 06:04 Dose: 17 gm Pregabalin (Pregabalin 75 Mg Cap) 75 mg PO QAM JAYLA Stop: 10/17/22 08:59 Last Admin: 09/18/22 08:48 Dose: 75 mg Pregabalin (Pregabalin 150 Mg Cap) 150 mg PO HS [facility] Stop: 10/16/22 20:59 Last Admin: 09/17/22 20:35 Dose: 150 mg Senna/Docusate Sodium (Docusate Sodium/Senna 50/8.6mg Tab) 2 tab PO HS JAYLA Stop: 10/16/22 20:59 Last Admin: 09/17/22 20:31 Dose: 2 tab Sodium Biphosphate/Sodium Phosphate (Sod Phosphate/Sod Biphosphate Enema 132 Ml Btl) 132 ml [place] ONE PRN PRN Reason: Constipation Stop: 10/16/22 12:38 Tramadol HCl (Tramadol Hcl 50 Mg Tablet) 50 - 100 mg PO Q4H PRN PRN Reason: Moderate-Severe pain & Pre PT Stop: 10/16/22 12:38
[2022-09-18] MEDS: DOCUSATE SODIUM/SENNA 50/8.6MG TAB PO SCH (20:17)
[2022-09-18] MEDS: ATORVASTATIN 20 MG TAB PO SCH (20:17)
[2022-09-18] MEDS: PREGABALIN 150 MG CAP PO SCH (20:21)
[2022-09-19] MEDS: POLYETHYLENE (MIRALAX) 17 GM PACK PO SCH ×2 (00:36→05:32)
[2022-09-19] MEDS: oxyCODONE HCL IR 5 MG TAB (IMMEDIATE RELEASE) PO PRN (01:05)
[2022-09-19 06:38] LABS: Hematocrit (blood only) 26.3 % (42.0-52.0); Hemoglobin 9.2 g/dl (14.0-18.0)
[2022-09-19 07:03] LABS: BUN Creatinine Ratio 18.5 (10-20); Calcium 8.6 mg/dl (8.6-10.3); Creatinine Clr Calc Pharmacy 60.9 ml/min; Est GFR (African American) 91.4 ml/min; Est GFR (Non-African American) 78.8 ml/min; Potassium 3.7 mmol/L (3.5-5.1)
--- NOTE | 2022-09-19 08:52 | Hospitalist Progress Note ---
Date of Service September 19, 2022 Assessment & Plan (1) Neurogenic claudication due to lumbar spinal stenosis: Plan Neurogenic claudication due to lumbar spinal stenosis Status post L2-S1 lumbar decompression fusion by Dr. Gonzalez, POD #3 Tolerated procedure well Pain/wound management per orthopedic Activity and therapy as prescribed by Ortho Acute blood loss anemia, also likely component of dilution Preop hgb 12.9 -> 9.1 currently Hgb 9.2 and stable from yesterday Monitor hemoglobin Sinus bradycardia Chronic, asymptomatic Seen and evaluated by cardiology in [place], [place] and underwent echocardiogra m and stress test There is possible concern about underlying sick sinus syndrome however recommendation is to continue to monitor patient at this point time outpt cardiology records reviewed Hyperlipidemia Continue statin DVT prophylaxis: Per primary Full code Dispo: Per primary PCP: Jef Mills PA-C; pt resides in [place] for 1/2 the year and has medical care there as well Thank you for this consultation. We will follow the patient with you during their hospital stay. You can reach a member of the [facility] Hospitalist Team 03/11 via hospitalist role on tiger text. Admission and Anticipated Discharge Date Admission Date: September 16, 2022 Subjective Pt seen in follow up of med consult - pt s/p lumbar spine surgery Currently resting in bed, in no acute distress He is ambulating No fever chills chest pain shortness of breath, no abdominal pain Only reports some lower back pain at the surgical site No BM yet Plan to likely DC today Review of Systems Review of Systems: All systems reviewed & are unremarkable except as noted in Subjective Physical Exam Physical Exam: Constitutional: WD/WN, NAD Head: Normocephalic, Atraumatic Eyes: PERRL, conjunctivae normal, anicteric sclerae ENMT: external ear and nose normal, oropharynx normal Neck:supple Respiratory: normal respiratory effort, lungs clear to auscultation, no wheeze, rales, rhonchi. Normal insp/exp effort Cardiovascular: RRR, no murmur, no edema Vessels: no JVD or carotid bruit Chest: normal inspection of chest Abdomen: normal bowel sounds, soft, nontender, Musculoskeletal: back -bernardo drain with serosang. drainage Skin: no rashes, warm and dry Neurologic: PERRL, no face palsy, no dysarthria, moves all extremities Psychiatric: A+Ox3, euthymic affect Results & Data Results & Data Vital Signs (Past 12 Hours) Vital Signs Temp Pulse Resp BP Pulse Ox O2 Del Method 09/19/22 07:34 36.7 C 43 L 18 136/70 94 Room Air 09/18/22 21:51 36.6 C 64 18 129/64 99 Room Air Laboratory Results 09/19/22 09/19/22 Range/Units 05:59 05:59 Hgb 9.2 L (14.0-18.0) g/dl Hct 26.3 L (42.0-52.0) % Sodium 139 (136-145) mmol/L Potassium 3.7 (3.5-5.1) mmol/L Chloride 106 (98-107) mmol/L Carbon Dioxide 27 (21-32) mmol/L Anion Gap 6 (3-11) BUN 17 (6-23) mg/dl Creatinine 0.92 (0.6-1.4) mg/dl Est Cr Clr Drug Dosing 60.9 ml/min Est GFR ( Amer) 91.4 ml/min Est GFR (Non-Af Amer) 78.8 ml/min BUN/Creatinine Ratio 18.5 (10-20) Glucose 104 H (70-99(Fasting)) mg/dl Calcium 8.6 (8.6-10.3) mg/dl Medications Administered Current Inpatient Medications Acetaminophen (Acetaminophen 500 Mg Tab) 1,000 mg PO Q8H PRN PRN Reason: MILD Pain Scale 1,2,3 & Pre PT Stop: 10/16/22 12:38 Last Admin: 09/16/22 20:19 Dose: 1,000 mg Al Hydrox/Mg Hydrox/Simethicone (Aluminum/Magnesium Susp 30 Ml Udc) 30 ml PO Q6H PRN PRN Reason: Dyspepsia Stop: 10/16/22 12:38 Atorvastatin Calcium (Atorvastatin 20 Mg Tab) 20 mg PO HS JAYLA Stop: 10/16/22 20:59 Last Admin: 09/18/22 20:17 Dose: 20 mg Bisacodyl (Bisacodyl 10 Mg Supp) 10 mg [place] DAILY PRN PRN Reason: Constipation Stop: 10/16/22 12:38 Diphenhydramine HCl (Diphenhydramine Capsule 25 Mg Cap) 25 mg PO Q6H PRN PRN Reason: Allergic Rhinitis/Insomnia Stop: 10/16/22 12:38 Famotidine (Famotidine 20 Mg Tab) 20 mg PO Q12H PRN PRN Reason: Dyspepsia Stop: 10/16/22 12:38 Hydromorphone HCl (Hydromorphone Inj 0.5 Mg/0.5 Ml Syr) 0.5 mg IV Q3H PRN PRN Reason: MODERATE Pain (Scale 4,5,6) & Pre PT Stop: 09/30/22 12:38 Last Admin: 09/16/22 14:28 Dose: 0.5 mg Hydromorphone HCl (Hydromorphone Inj 1 Mg/Ml Syringe) 1 mg IV Q3H PRN PRN Reason: SEVERE Pain (Scale 7,8,9,10) Stop: 09/30/22 12:38 Hydroxyzine HCl (Hydroxyzine Hcl 25 Mg Tab) 25 mg PO Q8H PRN PRN Reason: Anxiety Stop: 10/16/22 12:38 Promethazine HCl 12.5 mg/ (Sodium Chloride) 50.5 mls @ 202 mls/hr IV Q6H PRN PRN Reason: Nausea &/or Vomiting Stop: 10/16/22 12:38 Dexamethasone 6 mg/ Syringe 1.5 mls @ 1 mls/min IV DAILY JAYLA Stop: 09/19/22 09:02 Last Admin: 09/18/22 08:44 Dose: 1 mls/min Influenza Virus Vaccine Quadrival (Do Not Administer Flu Vaccine) 1 each N/A PRN PRN PRN Reason: Notification Stop: 10/16/22 12:38 Lorazepam (Lorazepam 0.5 Mg Tab) 0.5 mg PO Q8H PRN PRN Reason: Sedation/Anxiety Stop: 10/16/22 12:38 Lorazepam (Lorazepam 2 Mg/1 Ml Vial) 0.5 mg IV Q8H PRN PRN Reason: Sedation/Anxiety Stop: 10/16/22 12:38 Magnesium Hydroxide (Magnesium Hydroxide Susp 30 Ml Udc) 30 ml PO Q24H PRN PRN Reason: Constipation Stop: 10/16/22 12:38 Last Admin: 09/18/22 18:00 Dose: 30 ml Metoclopramide HCl (Metoclopramide Hcl Inj 5 Mg/Ml 2 Ml Vial) 10 mg IV Q6H PRN PRN Reason: Nausea &/or Vomiting Stop: 10/16/22 12:38 Naloxone HCl (Naloxone Hcl 0.4 Mg/1 Ml Vial/Carp) 0.1 mg IV Q5M PRN PRN Reason: Oversedation/Resp depression Stop: 10/16/22 12:38 Ondansetron HCl (Ondansetron Inj 2 Mg/Ml 2 Ml Vial) 4 mg IV Q6H PRN PRN Reason: Nausea &/or Vomiting Stop: 10/16/22 12:38 Ondansetron HCl (Ondansetron 4 Mg Od Tab) 4 mg PO Q6H PRN PRN Reason: Nausea Stop: 10/16/22 12:38 Oxycodone HCl (Oxycodone Hcl Ir 5 Mg Tab (Immediate Release)) 5 - 10 mg PO Q4H PRN PRN Reason: Pain & Pre PT Stop: 09/30/22 12:38 Last Admin: 09/19/22 01:05 Dose: 10 mg Pneumococcal Polyvalent Vaccine (Do Not Administer Pneumococcal Vaccine) 1 each N/A PRN PRN PRN Reason: Notification Stop: 10/16/22 12:38 Polyethylene Glycol (Polyethylene (Miralax) 17 Gm Pack) 17 gm PO Q6 JAYLA Stop: 10/17/22 05:59 Last Admin: 09/19/22 05:32 Dose: 17 gm Pregabalin (Pregabalin 75 Mg Cap) 75 mg PO QAM JAYLA Stop: 10/17/22 08:59 Last Admin: 09/18/22 08:48 Dose: 75 mg Pregabalin (Pregabalin 150 Mg Cap) 150 mg PO HS [facility] Stop: 10/16/22 20:59 Last Admin: 09/18/22 20:21 Dose: 150 mg Senna/Docusate Sodium (Docusate Sodium/Senna 50/8.6mg Tab) 2 tab PO HS JAYLA Stop: 10/16/22 20:59 Last Admin: 09/18/22 20:17 Dose: 2 tab Sodium Biphosphate/Sodium Phosphate (Sod Phosphate/Sod Biphosphate Enema 132 Ml Btl) 132 ml [place] ONE PRN PRN Reason: Constipation Stop: 10/16/22 12:38 Tramadol HCl (Tramadol Hcl 50 Mg Tablet) 50 - 100 mg PO Q4H PRN PRN Reason: Moderate-Severe pain & Pre PT Stop: 10/16/22 12:38
[2022-09-19] MEDS: dexAMETHasone 6 MG in SYRINGE 0 ML IV SCH (08:54)
[2022-09-19] MEDS: PREGABALIN 75 MG CAP PO SCH (08:54)
--- NOTE | 2022-09-19 09:20 | Discharge Summary ---
Date of Service September 19, 2022 Admission HPI Per Admitting Provider This is a 77-year-old male presents with chronic persistent back and bilateral leg pain after failing since course of nonoperative care is here for surgical intervention. Discharge Data Consultations 09/16/22 12:39 Consult Hospitalist Routine Procedures Performed Operation Date: 09/16/22 07:45 Actual Procedures p L2-S1 Decompression and Fusion, Spinal Cord Monitoring(Not Applicable) - Jf Gonzalez DO Hospital Course (1) Neurogenic claudication due to lumbar spinal stenosis:
--- NOTE | 2022-09-19 09:27 | Discharge Summary ---
Date of Service September 19, 2022 Admission HPI Per Admitting Provider This is a 77-year-old male presents with chronic persistent back and bilateral leg pain after failing since course of nonoperative care is here for surgical intervention. Discharge Data Consultations 09/16/22 12:39 Consult Hospitalist Routine Procedures Performed Operation Date: 09/16/22 07:45 Actual Procedures p L2-S1 Decompression and Fusion, Spinal Cord Monitoring(Not Applicable) - Jf Gonzalez DO Hospital Course (1) Neurogenic claudication due to lumbar spinal stenosis: Patient is a pleasant 77-year-old male who has history physical examination and radiographic images consistent with above-mentioned diagnosis. For this reason is brought to the operating room on 09/16/2022 and had undergone a lumbar decompression fusion performed by Dr. Gonzalez. He left the operating room the GIL drain and Reyes in place and transferred to PACU in stable condition. He was then transferred to orthopedic floor. He was placed on GI and DVT prophylaxis as well as pain control measures. He was seen by physical therapy postoperative 1. Throughout his hospital course his cancer and supple nontender his abdomen remains supple and nontender and on postop day #3 he is deemed safe for home discharge. He was to change dressing once daily until there is no drainage that he may shower. He should avoid driving. May utilize oxycodone and tramadol for pain control. He is to be seen in the office in approximately 2 weeks or sooner if he develops any increased pain fevers chills or drainage from the incision.
== END 2022-09-19 12:43 | disposition home or self-care (01) | DRG 454 ==
LOC: ASU 06:11 → 3E 11:08